=== PATIENT | male | born 1950 | race Two or more races ===

== ENCOUNTER → 2017-12-09 | Day surgery (SDC) | payer OTHER ==
[~2017-12-09] MED LIST: COUMADIN4 MG PO; PERCOCET 5-3251 EACH PO; VASOTEC20 M1 PO; ZOCOR20 MG PO
== END | disposition home or self-care (01) ==
LOC: ADM 12-02 07:15 → CIR.AMB 07:15
DX: D12.8 Benign neoplasm of rectum (principal); K62.89 Other specified diseases of anus and rectum

== ENCOUNTER 2018-10-30 08:28 | Outpatient (CLI) | payer OTHER | END 2018-10-30 08:49 | disposition home or self-care (01) | LOC: LAB 08:28 | DX: C20 Malignant neoplasm of rectum (principal); D68.8 Other specified coagulation defects; R97.0 Elevated carcinoembryonic antigen [CEA]; K62.1 Rectal polyp; Z79.01 Long term (current) use of anticoagulants; D51.1 Vitamin B12 deficiency anemia due to selective vitamin B12 malabsorption with proteinuria; D51.3 Other dietary vitamin B12 deficiency anemia; D50.0 Iron deficiency anemia secondary to blood loss (chronic); K63.5 Polyp of colon; D12.6 Benign neoplasm of colon, unspecified; Z95.2 Presence of prosthetic heart valve; I10 Essential (primary) hypertension; K31.83 Achlorhydria; I35.0 Nonrheumatic aortic (valve) stenosis; D51.8 Other vitamin B12 deficiency anemias; K90.89 Other intestinal malabsorption; E03.8 Other specified hypothyroidism; E78.2 Mixed hyperlipidemia; R97.8 Other abnormal tumor markers ==

== ENCOUNTER → 2019-02-02 08:54 | Outpatient (CLI) | payer OTHER | END | disposition home or self-care (01) | LOC: LAB 08:54 | DX: C20 Malignant neoplasm of rectum (principal); D68.8 Other specified coagulation defects; R97.0 Elevated carcinoembryonic antigen [CEA]; K62.1 Rectal polyp; Z79.01 Long term (current) use of anticoagulants; D51.1 Vitamin B12 deficiency anemia due to selective vitamin B12 malabsorption with proteinuria; D51.3 Other dietary vitamin B12 deficiency anemia; D50.0 Iron deficiency anemia secondary to blood loss (chronic); D12.6 Benign neoplasm of colon, unspecified; Z95.2 Presence of prosthetic heart valve; I10 Essential (primary) hypertension; K31.83 Achlorhydria; I35.0 Nonrheumatic aortic (valve) stenosis; D50.8 Other iron deficiency anemias; D51.8 Other vitamin B12 deficiency anemias; E03.8 Other specified hypothyroidism; R97.8 Other abnormal tumor markers ==

== ENCOUNTER 2019-06-02 08:46 | Outpatient (CLI) | payer OTHER | END 2019-06-02 09:04 | disposition home or self-care (01) | LOC: LAB 08:46 | DX: C20 Malignant neoplasm of rectum (principal); D68.8 Other specified coagulation defects; R97.0 Elevated carcinoembryonic antigen [CEA]; K62.1 Rectal polyp; Z79.01 Long term (current) use of anticoagulants; D51.1 Vitamin B12 deficiency anemia due to selective vitamin B12 malabsorption with proteinuria; D51.3 Other dietary vitamin B12 deficiency anemia; D50.0 Iron deficiency anemia secondary to blood loss (chronic); D12.6 Benign neoplasm of colon, unspecified; Z95.2 Presence of prosthetic heart valve; I10 Essential (primary) hypertension; K31.83 Achlorhydria; I35.0 Nonrheumatic aortic (valve) stenosis; D50.8 Other iron deficiency anemias; D51.8 Other vitamin B12 deficiency anemias; E78.2 Mixed hyperlipidemia; E03.8 Other specified hypothyroidism; R97.8 Other abnormal tumor markers ==

== ENCOUNTER 2019-09-03 08:31 | Outpatient (CLI) | payer OTHER | END 2019-09-03 08:46 | disposition home or self-care (01) | LOC: LAB 08:31 | DX: C20 Malignant neoplasm of rectum (principal); D68.8 Other specified coagulation defects; R97.0 Elevated carcinoembryonic antigen [CEA]; K62.1 Rectal polyp; Z79.01 Long term (current) use of anticoagulants; D51.1 Vitamin B12 deficiency anemia due to selective vitamin B12 malabsorption with proteinuria; D51.3 Other dietary vitamin B12 deficiency anemia; D50.0 Iron deficiency anemia secondary to blood loss (chronic); D12.6 Benign neoplasm of colon, unspecified; Z95.2 Presence of prosthetic heart valve; I10 Essential (primary) hypertension; K31.83 Achlorhydria; I35.0 Nonrheumatic aortic (valve) stenosis; D50.8 Other iron deficiency anemias; D51.8 Other vitamin B12 deficiency anemias; E78.2 Mixed hyperlipidemia; E03.8 Other specified hypothyroidism ==

== ENCOUNTER → 2020-05-08 09:13 | Outpatient (CLI) | payer OTHER | END | disposition home or self-care (01) | LOC: LAB 09:13 | PROVIDERS: ATTEND Internal Medicine Hematology & Oncology | DX: D50.8 Other iron deficiency anemias (principal); I10 Essential (primary) hypertension; C20 Malignant neoplasm of rectum; D68.8 Other specified coagulation defects; R97.0 Elevated carcinoembryonic antigen [CEA]; K62.1 Rectal polyp; Z79.01 Long term (current) use of anticoagulants; D51.1 Vitamin B12 deficiency anemia due to selective vitamin B12 malabsorption with proteinuria; D51.3 Other dietary vitamin B12 deficiency anemia; D50.0 Iron deficiency anemia secondary to blood loss (chronic); D12.6 Benign neoplasm of colon, unspecified; Z95.2 Presence of prosthetic heart valve; K31.83 Achlorhydria; I35.0 Nonrheumatic aortic (valve) stenosis; D51.8 Other vitamin B12 deficiency anemias ==

== ENCOUNTER 2020-07-30 13:34 | Emergency (ER) | payer OTHER ==
[~2020-07-30] VITALS: Ht 162.6 cm; Wt 65.3 kg
== END 2020-07-30 20:46 | disposition home or self-care (01) ==
LOC: ER 13:34
DX: K40.90 Unilateral inguinal hernia, without obstruction or gangrene, not specified as recurrent (principal); K80.20 Calculus of gallbladder without cholecystitis without obstruction

== ENCOUNTER 2020-08-30 06:29 | Day surgery (SDC) | payer OTHER ==
[2020-08-30] MEDS ORDERED: COLACE100 MG PO (12:28)
[2020-08-30] MEDS ORDERED: NEURONTIN600 M1 PO (12:29)
[2020-08-30] MEDS ORDERED: PERCOCET 5-3251 EACH PO (12:29)
== END 2020-08-30 14:40 | disposition home or self-care (01) ==
LOC: CIR.AMB 06:29
PROVIDERS: ATTEND Surgery
DX: K40.90 Unilateral inguinal hernia, without obstruction or gangrene, not specified as recurrent (principal); Z20.828 Contact with and (suspected) exposure to other viral communicable diseases

== ENCOUNTER 2023-07-16 07:25 | Outpatient (CLI) | payer OTHER ==
[~2023-07-16 07:25] MED LIST changes: +COLACE100 MG PO; +NEURONTIN600 M1 PO
== END 2023-07-16 07:26 | disposition home or self-care (01) ==
LOC: NUCLEAR 07:25
PROVIDERS: ATTEND Internal Medicine Hematology & Oncology
DX: C20 Malignant neoplasm of rectum (principal); D68.8 Other specified coagulation defects; R97.0 Elevated carcinoembryonic antigen [CEA]; K62.1 Rectal polyp; Z79.01 Long term (current) use of anticoagulants; D51.1 Vitamin B12 deficiency anemia due to selective vitamin B12 malabsorption with proteinuria; D51.3 Other dietary vitamin B12 deficiency anemia; D50.0 Iron deficiency anemia secondary to blood loss (chronic); K63.5 Polyp of colon; D12.6 Benign neoplasm of colon, unspecified; Z95.2 Presence of prosthetic heart valve; I10 Essential (primary) hypertension; K31.83 Achlorhydria; I35.0 Nonrheumatic aortic (valve) stenosis; D68.4 Acquired coagulation factor deficiency; R97.20 Elevated prostate specific antigen [PSA]
CPT/HCPCS: 78306; A9503

== ENCOUNTER 2023-07-18 07:11 | Outpatient (CLI) | payer OTHER ==
[2023-07-18 08:00] LABS: HEMOGLOBIN 14.7 g/dL (13-16.00); MEAN CELL VOLUME 88.9 fL (80.0-100.00); MEAN CORPUSCULAR HEMOGLOBIN 30.5 pg (27.00-32.0); MEAN CORPUSCULAR HGB CONC 34.3 g/dl (32.0-36.0); PLATELET COUNT 206 K/uL (150-450); RED BLOOD COUNT 4.84 M/uL (4.00-6.00)
[2023-07-18 08:40] LABS: INR 3.04
[2023-07-18 08:46] LABS: % SATURACION 17.1 % (20-50); ALBUMIN 4.1 gm/dL (3.4-5.0); BILIRUBIN TOTAL 0.86 mg/dL (0.3-1.2); CALCIUM 8.6 mg/dL (8.5-10.1); CREATININE SERUM 1.04 mg/dL (0.70-1.30); FERRITIN 192.2 NG/ML (26-388); GFR 69.81; GLOBULINA 3.2 G/DL (2.4-3.5); POTASSIUM 4.45 mEq/L (3.5-5.1); TOTAL PROTEIN 7.3 gm/dL (6.4-8.2)
[2023-07-18 08:47] LABS: PROTHROMBIN TIME 29.4 SECONDS (9.0-11.5)
[2023-07-18 09:09] LABS: PLATELET ESTIMATE NORMAL (NORMAL)
[2023-07-18 09:44] LABS: FOLIC ACID 13.57 ng/ml (4.78-20)
== END 2023-07-18 10:27 | disposition home or self-care (01) ==
LOC: LAB 07:11
PROVIDERS: ATTEND Internal Medicine Hematology & Oncology
DX: D50.8 Other iron deficiency anemias (principal); R79.9 Abnormal finding of blood chemistry, unspecified; I10 Essential (primary) hypertension; R74.02 Elevation of levels of lactic acid dehydrogenase [LDH]; K76.89 Other specified diseases of liver; D68.8 Other specified coagulation defects; R97.0 Elevated carcinoembryonic antigen [CEA]; R97.8 Other abnormal tumor markers; C20 Malignant neoplasm of rectum; K62.1 Rectal polyp; D51.1 Vitamin B12 deficiency anemia due to selective vitamin B12 malabsorption with proteinuria; Z79.01 Long term (current) use of anticoagulants; D50.0 Iron deficiency anemia secondary to blood loss (chronic); D51.3 Other dietary vitamin B12 deficiency anemia; D12.6 Benign neoplasm of colon, unspecified; Z95.2 Presence of prosthetic heart valve; K31.83 Achlorhydria; I35.0 Nonrheumatic aortic (valve) stenosis; E56.1 Deficiency of vitamin K; R97.20 Elevated prostate specific antigen [PSA]

== ENCOUNTER 2023-12-18 09:25 | Outpatient (CLI) | payer OTHER ==
[2023-12-18 10:35] LABS: HEMATOCRIT 39.9 % (39.0-48.0); HEMOGLOBIN 13.9 g/dL (13-16.00); MEAN CELL VOLUME 87.7 fL (80.0-100.00); MEAN CORPUSCULAR HEMOGLOBIN 30.5 pg (27.00-32.0); MEAN CORPUSCULAR HGB CONC 34.8 g/dl (32.0-36.0); PLATELET COUNT 203 K/uL (150-450); RED BLOOD COUNT 4.55 M/uL (4.00-6.00); RED CELL DISTRIBUTION WIDTH 13.8 % (11.5-14.5)
[2023-12-18 11:08] LABS: INR 2.64
[2023-12-18 11:10] LABS: PARTIAL THROMBOPLASTIN TIME 42.4 SECONDS (22.0-34.0)
[2023-12-18 11:11] LABS: PROTHROMBIN TIME 25.8 SECONDS (9.0-11.5)
[2023-12-18 11:19] LABS: ALBUMIN 4.4 gm/dL (3.4-5.0); BILIRUBIN TOTAL 1.16 mg/dL (0.3-1.2); CALCIUM 9.6 mg/dL (8.5-10.1); CREATININE SERUM 0.91 mg/dL (0.70-1.30); GFR 81.44; GLOBULINA 3.4 G/DL (2.4-3.5); POTASSIUM 4.6 mEq/L (3.5-5.1); PROSTATIC SPECIFIC ANTIGEN 0.648 NG/ML (0.010-4.00); TOTAL PROTEIN 7.8 gm/dL (6.4-8.2)
[2023-12-18 12:30] LABS: FOLIC ACID 18.36 ng/ml (4.78-20)
== END 2023-12-18 09:26 | disposition home or self-care (01) ==
LOC: LAB 09:25
PROVIDERS: ATTEND Internal Medicine Hematology & Oncology
DX: D50.8 Other iron deficiency anemias (principal); R79.9 Abnormal finding of blood chemistry, unspecified; I10 Essential (primary) hypertension; R74.02 Elevation of levels of lactic acid dehydrogenase [LDH]; K76.89 Other specified diseases of liver; D51.8 Other vitamin B12 deficiency anemias; D68.8 Other specified coagulation defects; R97.0 Elevated carcinoembryonic antigen [CEA]; R97.8 Other abnormal tumor markers; R97.20 Elevated prostate specific antigen [PSA]; C20 Malignant neoplasm of rectum; K62.1 Rectal polyp; Z79.01 Long term (current) use of anticoagulants; D51.1 Vitamin B12 deficiency anemia due to selective vitamin B12 malabsorption with proteinuria; D51.3 Other dietary vitamin B12 deficiency anemia; D50.0 Iron deficiency anemia secondary to blood loss (chronic); K63.5 Polyp of colon; D12.6 Benign neoplasm of colon, unspecified; Z95.2 Presence of prosthetic heart valve; K31.83 Achlorhydria; I35.0 Nonrheumatic aortic (valve) stenosis; D68.4 Acquired coagulation factor deficiency; Z88.0 Allergy status to penicillin

== ENCOUNTER 2024-01-13 07:41 | Day surgery (SDC) | payer OTHER ==
[2024-01-13] MEDS ORDERED: MIDAZOLAM HCL 2 MG/2 ML VIAL IV ONE (11:15)
[2024-01-13] MEDS ORDERED: DIPHENHYDRAMINE HCL 50 MG/ML VIAL 1ML IV ONE (11:15)
[2024-01-13] MEDS ORDERED: fentaNYL CITRATE 50 MCG/ML AMPUL IV PUSH ONE (11:15)
[2024-01-13] MEDS ORDERED: ENALAPRILAT DIHYDRATE 1.25 MG/ML VIAL IV ONE (11:15)
== END 2024-01-13 13:10 | disposition home or self-care (01) ==
LOC: AMB-ENDOS 07:41
PROVIDERS: ATTEND Surgery
DX: D12.2 Benign neoplasm of ascending colon (principal); K57.30 Diverticulosis of large intestine without perforation or abscess without bleeding; K63.5 Polyp of colon; Z88.0 Allergy status to penicillin

== ENCOUNTER 2025-03-28 10:45 | Outpatient (CLI) | payer OTHER ==
[2025-03-28 13:05] LABS: INR 4.01
[2025-03-28 13:22] LABS: ALBUMIN 4.5 gm/dL (3.4-5.0); BILIRUBIN TOTAL 0.94 mg/dL (0.3-1.2); CALCIUM 9.8 mg/dL (8.5-10.1); CREATININE SERUM 0.97 mg/dL (0.70-1.30); GFR 75.45; GLOBULINA 3.3 G/DL (2.4-3.5); POTASSIUM 4.77 mEq/L (3.5-5.1); PROSTATIC SPECIFIC ANTIGEN 0.107 NG/ML (0.010-4.00); TOTAL PROTEIN 7.8 gm/dL (6.4-8.2)
[2025-03-28 13:30] LABS: PARTIAL THROMBOPLASTIN TIME 44.3 SECONDS (22.0-34.0); PROTHROMBIN TIME 39.4 SECONDS (9.0-11.5)
[2025-03-28 14:08] LABS: FOLIC ACID > 20.00 ng/ml (4.78-20); VITAMIN D3 25 HYDROXY 34.48 ng/ml (30-120)
[2025-03-28 15:23] LABS: BASO % 0.9 % (0.1-1.2); EOS # 0.15 (0.04-0.54); EOS % 2.3 % (0.7-7.0); HEMATOCRIT 39.3 % (40.1-51.0); HEMOGLOBIN 12.8 g/dL (13.7-17.5); LYMPH # 1.75 (1.18-3.74); MEAN CORPUSCULAR HEMOGLOBIN 29.1 pg (25.6-32.2); MONO # 0.72 (0.24-0.82); MONO % 11.1 % (4.7-12.5); NEUT # 3.78 (1.56-6.13); NEUT % 58.5 % (34.0-71.1); PLATELET COUNT 229 K/uL (163-369); RED CELL DISTRIBUTION WIDTH 14.1 % (11.6-14.4)
[2025-03-29 10:53] LABS: MANUAL PLATELET COUNT 225
== END 2025-03-28 10:50 | disposition home or self-care (01) ==
LOC: LAB 10:45
PROVIDERS: ATTEND Internal Medicine Hematology & Oncology
DX: C20 Malignant neoplasm of rectum (principal); D68.8 Other specified coagulation defects; R97.0 Elevated carcinoembryonic antigen [CEA]; K62.1 Rectal polyp; Z79.01 Long term (current) use of anticoagulants; D51.1 Vitamin B12 deficiency anemia due to selective vitamin B12 malabsorption with proteinuria; D51.3 Other dietary vitamin B12 deficiency anemia; D50.0 Iron deficiency anemia secondary to blood loss (chronic); K63.5 Polyp of colon; D12.6 Benign neoplasm of colon, unspecified; Z95.2 Presence of prosthetic heart valve; I10 Essential (primary) hypertension; K31.83 Achlorhydria; I35.0 Nonrheumatic aortic (valve) stenosis; E56.1 Deficiency of vitamin K; R97.20 Elevated prostate specific antigen [PSA]; D50.8 Other iron deficiency anemias; R79.9 Abnormal finding of blood chemistry, unspecified; R74.02 Elevation of levels of lactic acid dehydrogenase [LDH]; K76.89 Other specified diseases of liver; D51.8 Other vitamin B12 deficiency anemias; E55.9 Vitamin D deficiency, unspecified